=== PATIENT | male | born 1995 | race Caucasian/White ===

== ENCOUNTER 2018-08-01 18:03 | Emergency (ER) | payer OTHER, SELFPAY ==
[~2018-08-01] VITALS: Ht 172.7 cm; Wt 69.3 kg
[2018-08-01 18:04] VITALS: BP 129/74
== END 2018-08-01 19:24 | disposition left against medical advice (07) ==
LOC: M ED 18:03
DX: Z53.21 Procedure and treatment not carried out due to patient leaving prior to being seen by health care provider (principal)

== ENCOUNTER 2019-02-01 21:31 | Emergency (ER) | payer OTHER ==
[~2019-02-01] VITALS: Ht 172.7 cm; Wt 68.2 kg
[2019-02-01] MEDS ORDERED: PRED20TA PO (23:27)
[2019-02-01] MEDS ORDERED: predniSONE 20 MG TAB PO ONE (23:30)
[2019-02-01] MEDS ORDERED: diphenhydrAMINE 25 MG CAP PO ONE ×2 (23:30→23:45)
[2019-02-01] MEDS ORDERED: FAMOTIDINE 20 MG TAB PO ONE (23:30)
[2019-02-01] MEDS ORDERED: BENA25CA4 PO (23:32)
[2019-02-01] MEDS ORDERED: PEPC1TAB5 PO (23:34)
[2019-02-01 23:39] VITALS: BP 116/73
== END 2019-02-02 00:17 | disposition home or self-care (01) ==
LOC: M ED 21:31
DX: L50.0 Allergic urticaria (principal); T78.49XA Other allergy, initial encounter; X58.XXXA Exposure to other specified factors, initial encounter; Y92.89 Other specified places as the place of occurrence of the external cause